=== PATIENT | male | born 1960 | race Caucasian/White ===

== ENCOUNTER → 2020-05-25 02:47 | Outpatient (CLI) | payer BC, SELFPAY ==
[2020-05-25 19:42] LABS: SARS-CoV-2 RNA PCR Negative
== END ==
PROVIDERS: PCP Family Medicine; Visit Provider Internal Medicine Gastroenterology
DX: Z01.812 Encounter for preprocedural laboratory examination (principal); Z20.822 Contact with and (suspected) exposure to COVID-19
CPT/HCPCS: C9803; U0003; U0005

== ENCOUNTER 2020-05-29 01:06 | Day surgery (SDC) | payer BC, SELFPAY ==
[2020-05-22 09:36] VITALS: BMI 27.0
--- NOTE | 2020-05-28 15:20 | WPDANESEPPF ---
Anes - Initial Pre Proc Eval Procedure: Operation Date: 05/29/20 08:00 Proposed Procedures p Esophagogastroduodenoscopy - Twin Valenzuela MD Date/Time: 05/28/20 15:20 Surgeon: Twin Valenzuela MD Pre Op Diagnosis: abd pain, GERD Patient Data Age: 59 Gender: M Height: 1.8 m Weight: 88 kg Allergies Allergy/AdvReac Type Severity Reaction Status Date / Time meperidine Allergy Unknown Unknown Verified 05/22/20 09:32 mold Allergy Unknown Unknown Verified 05/22/20 09:32 pollen extracts Allergy Unknown Unknown Verified 05/22/20 09:32 potassium chloride Allergy Unknown Unknown Verified 05/22/20 09:32 Home Medications Medication Instructions Recorded Confirmed Type valsartan 160 mg tablet 160 mg PO DAILY #90 tablet 06/09/19 05/22/20 Rx vilazodone 40 mg tablet 40 mg PO DAILY #90 tablet 10/16/19 05/22/20 Rx montelukast 10 mg tablet 10 mg PO DAILY #90 tablet 02/05/20 05/22/20 Rx alprazolam 0.5 mg tablet 0.5 mg PO DAILY #90 tablet 02/09/20 05/22/20 Rx azelastine 137 mcg (0.1 %) nasal 1 spray NASAL Q12H #30 ml 03/04/20 05/22/20 Rx spray aerosol cholecalciferol (vitamin D3) 250 250 mcg PO DAILY 03/08/20 05/22/20 History mcg (10,000 unit) capsule bupropion HCl 300 mg 24 hr tablet, 300 mg PO QAM #90 tablet 03/11/20 05/22/20 Rx extended release fexofenadine [Herminia] 60 mg PO Q12H 05/22/20 05/22/20 History PMFSH Past Medical History Medical History (Updated 05/28/20 @ 15:38 by Baljeet Mendoza MD) Anxiety Depression GERD (gastroesophageal reflux disease) Hypertension Surgical History Surgical History History of appendectomy History of thoracic surgery Family History Family History Father Hypertension Mother Hypertension Other Family history of malignant neoplasm of urinary bladder Social History Social History Smoking packs per day: 1 Smoking cigarettes per day: 20.0 Years smoked: 16 Smoking pack-years: 16.00 Smoking status: Former smoker Tobacco type: cigarettes Alcohol intake: current Drinks per week: 2 Substance use type: does not use 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 Questions were solicited and answers provided to the satisfaction of the patient/family/POA.
[2020-05-29 06:32] VITALS: BP 141/91; PULSE 71; RESP 18; TEMP 36.2; O2SAT 98; BMI 27.4
[2020-05-29] MEDS: LACTATED RINGERS 1,000 ML 150 ML IV CONT (06:48)
--- NOTE | 2020-05-29 06:50 | WPDANESEPPF ---
Anes - Initial Pre Proc Eval Procedure: Operation Date: 05/29/20 08:00 Proposed Procedures p Esophagogastroduodenoscopy - Twin Valenzuela MD Date/Time: 05/29/20 06:50 Surgeon: Twin Valenzuela MD Pre Op Diagnosis: abd pain, GERD Patient Data Age: 59 Gender: M Height: 5 ft 11 in Weight: 89.4 kg Last Vital Signs Temp 36.2 C L 05/29/20 06:32 Pulse 71 05/29/20 06:32 Resp 18 05/29/20 06:32 BP 141/91 H 05/29/20 06:32 Pulse Ox 98 05/29/20 06:32 Allergies Allergy/AdvReac Type Severity Reaction Status Date / Time meperidine Allergy Unknown Unknown Verified 05/29/20 06:30 mold Allergy Unknown Unknown Verified 05/29/20 06:30 pollen extracts Allergy Unknown Unknown Verified 05/29/20 06:30 potassium chloride Allergy Unknown Unknown Verified 05/29/20 06:30 Home Medications Medication Instructions Recorded Confirmed Type valsartan 160 mg tablet 160 mg PO DAILY #90 tablet 06/09/19 05/22/20 Rx vilazodone 40 mg tablet 40 mg PO DAILY #90 tablet 10/16/19 05/22/20 Rx montelukast 10 mg tablet 10 mg PO DAILY #90 tablet 02/05/20 05/22/20 Rx alprazolam 0.5 mg tablet 0.5 mg PO DAILY #90 tablet 02/09/20 05/22/20 Rx azelastine 137 mcg (0.1 %) nasal 1 spray NASAL Q12H #30 ml 03/04/20 05/22/20 Rx spray aerosol cholecalciferol (vitamin D3) 250 250 mcg PO DAILY 03/08/20 05/22/20 History mcg (10,000 unit) capsule bupropion HCl 300 mg 24 hr tablet, 300 mg PO QAM #90 tablet 03/11/20 05/22/20 Rx extended release fexofenadine [Herminia] 60 mg PO Q12H 05/22/20 05/22/20 History Patient hx anesthesia problems: none Family hx anesthesia problems: none PMFSH Past Medical History Medical History Anxiety Depression GERD (gastroesophageal reflux disease) Hypertension Surgical History Surgical History History of appendectomy History of thoracic surgery Family History Family History Father Hypertension Mother Hypertension Other Family history of malignant neoplasm of urinary bladder Social History Social History Smoking packs per day: 1 Smoking cigarettes per day: 20.0 Years smoked: 16 Smoking pack-years: 16.00 Smoking status: Former smoker Tobacco type: cigarettes Alcohol intake: current Drinks per week: 2 Substance use type: does not use Living arrangements: with family 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 Questions were solicited and answers provided to the satisfaction of the patient/family/POA.
[2020-05-29 08:12] VITALS: BP 113/71; PULSE 68; RESP 23; O2SAT 94
[2020-05-29 08:22] VITALS: BP 120/80; PULSE 61; RESP 13; O2SAT 96
[2020-05-29 08:32] VITALS: BP 123/87; PULSE 62; RESP 16; O2SAT 96
--- NOTE | 2020-06-03 12:58 | PM.HPGS ---
History of Present Illness History of Present Illness Consent: Risks, benefits, and alternatives have been discussed and questions answered. Patient agrees to proceed with procedure. Chief complaint: abd pain, GERD Narrative: Doug Bauer is a 59 year old male with dysphagia for solid food Review of Systems Review of Systems: All systems reviewed & are unremarkable except as noted in HPI and below PMFSH Past Medical History Medical History Anxiety Depression GERD (gastroesophageal reflux disease) Hypertension Surgical History Surgical History History of appendectomy History of thoracic surgery Family History Family History Father Hypertension Mother Hypertension Other Family history of malignant neoplasm of urinary bladder Social History Social History Smoking packs per day: 1 Smoking cigarettes per day: 20.0 Years smoked: 16 Smoking pack-years: 16.00 Smoking status: Former smoker Tobacco type: cigarettes Alcohol intake: current Drinks per week: 2 Substance use type: does not use Living arrangements: with family 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 Spiritual care concerns: No Meds Home Medications and Allergies Home Medications Medication Instructions Recorded Confirmed Type vilazodone 40 mg tablet 40 mg PO DAILY #90 tablet 10/16/19 05/22/20 Rx montelukast 10 mg tablet 10 mg PO DAILY #90 tablet 02/05/20 05/22/20 Rx alprazolam 0.5 mg tablet 0.5 mg PO DAILY #90 tablet 02/09/20 05/22/20 Rx azelastine 137 mcg (0.1 %) nasal 1 spray NASAL Q12H #30 ml 03/04/20 05/22/20 Rx spray aerosol cholecalciferol (vitamin D3) 250 250 mcg PO DAILY 03/08/20 05/22/20 History mcg (10,000 unit) capsule bupropion HCl 300 mg 24 hr tablet, 300 mg PO QAM #90 tablet 03/11/20 05/22/20 Rx extended release fexofenadine 60 mg PO Q12H 05/22/20 05/22/20 History valsartan 160 mg tablet See Rx Instructions .ROUTE 05/30/20 Rx .COMPLEX #90 tablet Allergies Allergy/AdvReac Type Severity Reaction Status Date / Time meperidine Allergy Unknown Unknown Verified 05/29/20 06:30 mold Allergy Unknown Unknown Verified 05/29/20 06:30 pollen extracts Allergy Unknown Unknown Verified 05/29/20 06:30 potassium chloride Allergy Unknown Unknown Verified 05/29/20 06:30 Exam Const: General: alert Orientation/consciousness: patient oriented x3 Resp: Auscultation: clear to auscultation bilaterally Cardio: Rhythm: regular rhythm GI: GI Palp: Yes Soft to palpation and No Tenderness to palpation present (GI) Neuro: General: patient oriented x3 Assessment and Plan Assessment and plan (1) Dysphagia: Code(s): R13.10 - Dysphagia, unspecified Status: Acute Assessment and Plan: EGD with possible biopsy or dilatation or cautery.
== END 2020-05-29 08:42 | disposition home or self-care (01) ==
PROVIDERS: PCP Family Medicine; Visit Provider Internal Medicine Gastroenterology
PROC: 0DJ08ZZ Inspection of Upper Intestinal Tract, Via Natural or Artificial Opening Endoscopic (ICD-10-PCS; CPT 43235; principal; 2020-05-29 08:00)
DX: K22.2 Esophageal obstruction (principal); K21.9 Gastro-esophageal reflux disease without esophagitis; I10 Essential (primary) hypertension; F41.8 Other specified anxiety disorders; Z87.891 Personal history of nicotine dependence
CPT/HCPCS: 43249; 43239; 87081; 88305; C1726; J2704; J7120

== ENCOUNTER 2024-06-23 14:28 | Outpatient (CLI) | payer BC, SELFPAY ==
--- NOTE | ~2024-06-23 | MR_ITS ---
EXAMINATION: MR cervical spine wo con DATE: 06/23/2024 15:09 INDICATION: Cervical radiculopathy. TECHNIQUE: Magnetic resonance imaging (MRI) of the cervical spine was performed without intravenous c ontrast. COMPARISON: None FINDINGS: There is 4 degrees dextrocurvature of cervical spine. There is mild kyphosis of cervical sp ine. Vertebral body heights are normal. There is mildly decreased disc height at C4-C5 and moderately decreased disc height at C5-C6 and C6-C7. The spinal cord signal intensity is normal. The following disc levels are specifically discussed: C2-C3: The disc does not extend beyond the endplate margin. There is mild right uncovertebral joint o steoarthritis. There is severe bilateral facet joint osteoarthritis. There is mild bilateral neural f oraminal stenosis. There is no central canal stenosis. C3-C4: There is a central protrusion. There is mild bilateral uncovertebral joint osteoarthritis. The re is severe bilateral facet joint osteoarthritis. There is mild bilateral neural foraminal stenosis. There is mild central canal stenosis. C4-C5: The disc is bulging. There is moderate bilateral uncovertebral joint osteoarthritis. There is severe bilateral facet joint osteoarthritis. There is mild bilateral neural foraminal stenosis. There is mild central canal stenosis. C5-C6: The disc is bulging. There is severe bilateral uncovertebral joint osteoarthritis. There is se ravindra bilateral facet joint osteoarthritis. There is moderate right and mild left neural foraminal mirta nosis. There is mild central canal stenosis. C6-C7: The disc is bulging with superimposed central extrusion. There is severe bilateral uncovertebr al joint osteoarthritis. There is mild bilateral facet joint osteoarthritis. There is mild bilateral neural foraminal stenosis. There is mild central canal stenosis. C7-T1: There is a central protrusion. There is no uncovertebral joint osteoarthritis. There is severe bilateral facet joint osteoarthritis. There is mild bilateral neural foraminal stenosis. There is no central canal stenosis. IMPRESSION: 1. Moderate cervical spondylosis. Reviewed, dictated and finalized at location A.
--- OUTSIDE RECORDS SUMMARY | 2024-06-23 14:32 | XMS_ITS ---
Author Organization [facility] Address [facility] [address] [facility] [address] [place] [address] Care Team Providers Care Emergency Response Technician Name Role Phone FestusKhadra capps DO Primary Care Provider Unavailab Hafsa Martini Unavailable [phone] REASON FOR VISIT Prescription Refill Social History Sex Assigned At : Social History Observation Description Sex Assigned At Male Encounters Encounter Location Date Provider Diagnosis [place] [id number] [facility] [address] [facility] [address] [place] [address] 04/17/2024 Hafsa Marti Plan Of Treatment Next Appt Details Provider Name:Hafsa Mrati , 2024 01:30:00 PM, [address], [facility] [address], [place], [address], Progress Notes * Doug BAUER PDOB: [birth year] (63 yo M)Acc No.[id number]:04/17/2024 Patient: Doug CHEN :1960 A ge:63 Y S ex:Male Phone: [facility] [place], [address] * true * Date: Generated for Printi ng/Faxing/eTransmitting on: 0 06/23/2024 02:32 PM CDT
--- OUTSIDE RECORDS SUMMARY | 2024-06-23 14:32 | XMS_ITS ---
Author Organization [facility] Address [facility] [facility] [address] [facility] [address] [place] [address] Care Team Providers Care Clam Treader Name Role Phone FestusKhadra capps DO Primary Care Provider Unavailab Hafsa Martini Unavailable [phone] REASON FOR VISIT Burproprion Social History Sex Assigned At : Social History Observation Description Sex Assigned At Male Encounters Encounter Location Date Provider Diagnosis [place] [id number] [facility] [address] [facility] [address] [place] [address] 04/17/2024 Hafsa Marti Plan Of Treatment Next Appt Details Provider Name:Hafsa Marti , 2024 01:30:00 PM, [address], [facility] [address], [place], [address], Progress Notes * Doug BAUER PDOB: [birth year] (63 yo M)Acc No.[id number]:04/17/2024 Patient: Doug CHEN :1960 A ge:63 Y S ex:Male Phone: Address[facility] [place], [address] * true * Date: Generated for Printi ng/Faxing/eTransmitting on: 0 06/23/2024 02:32 PM CDT
--- OUTSIDE RECORDS SUMMARY | 2024-06-23 14:32 | XMS_ITS | Patient Health Record ---
Author Organization [facility] [employer] Address [address] [place] [address] Care Team Providers Care Candy Vendor Name Role Phone Khadra Owen DO Primary Care Provider UnavailHafsa Esquivel Unavailable [phone] Allergies No Known Allergies Results Component Value Reference Range Notes UDT Reviewed date:03/28/2024 02:19:58 PM Interpretation: Performing Lab: Notes/Report: THC NEG 0 - 50 ng/ml Cocaine NEG 0 - 300 ng/ml Amphetamine NEG 0 - 1000 ng/ml Buprenorphine (BUP) NEG 0 - 10 ng/ml Secobarbital (Bar) NEG 0 - 300 ng/ml Oxazepam (BZO) POS 0 - 300 ng/ml 7-ydolrraooz-4,3-casjissl-6,3-diphenylpyrrolidine (SPIKE P) NEG 0 - 300 ng/ml Methamphetamine (MET) NEG 0 - 1000 ng/ml Methylenedioxymethamphetamine (MDMA) NEG 0 - 500 ng/ml Morphine (MOP 300/[id number]) NEG 0 - 300 ng/ml Methadone (MTD) NEG 0 - 300 ng/ml Phencyclidine (PCP) NEG 0 - 25 ng/ml Nortriptyline (TCA) NEG 0 - 1000 ng/ml Oxycodone NEG 0 - 300 ng/ml x NEG 0 - 300 ng/ml Reason For Referral No Information Medications Medication SIG (Take, Route, Frequency, Duration) Notes Start Date End Date Status busPIRone HCl 5 MG 1 tablet Orally Twice a day for 90 days Active Xanax 0.5 MG 1 tablet Orally Twice a day Active Montelukast Sodium 10 MG 1 tablet Orally Once a day Active Trintellix 10 MG 1 tablet Orally Once a day for 90 days Active Tylenol PM Extra Strength 500-25 MG 1 tablet at bedtime as needed Orally Once a day needed for sleep Active Trintellix 10 MG 1 tablet Orally Once a day for 30 days 04/12/2024 Active Omeprazole 20 MG 1 capsule 1/2 to 1 hour before morning meal Orally Once a day Active Valsartan 160 MG 1 tablet Orally Once a day Active buPROPion HCl ER (XL) 150 MG 1 tablet in the morning Orally Once a day for 90 days stop 300 mg dose patient is on 150 mg daily Active Dextromethorphan-buP ROPion ER 45-105 MG 1 tablet in the morning Orally twice a day for 30 days d/c Wellbutrin 06/16/2024 Active Social History Tobacco Use: Social History Observation Description Date Details (start date - stop date) Unknown Sex Assigned At : Social History Observation Description Sex Assigned At Male Sexual History Question Answer Notes Had sex in the past 12 months (vaginal, oral, or anal)? Yes with Men only Tobacco Control (Standard) Question Answer Notes Tobacco use: Uses tobacco in other forms AUDIT-C (Standard) Question Answer Notes Did you have a drink contain ing alcohol in the past year? Yes How often did you have a dri nk containing alcohol in the past year? Monthly or less (1 point) Problems Problem Type SNOMED Code ICD Code Onset Dates Problem Status W/U Status Risk Notes Problem 3837107 Primary insomnia (F51.01) Active confirmed Problem Depression Screening (902295614) Encounter for screening for depression (Z13.31) Active confirmed Problem 55652083 Primary hypertension (I10) Active confirmed Problem [id number] CASTILLO (generalized anxiety disorder) (F41.1) Active confirmed Problem [id number] MDD (major depressive disorder), recurrent episode, moderate (F33.1) Active confirmed Vital Signs Heart Rate 76 /min 04/14/2024 Respiratory Rate 16 /min 06/16/2024 Blood pressure diastolic 102 mm Hg 04/14/2024 Weight-kg 89.81 kg 04/14/2024 Blood pressure systolic 169 mm Hg 04/14/2024 Weight 198 lbs 04/14/2024 Encounters Encounter Location Date Provider Diagnosis [facility] [employer] [facility] [address] [address] 03/28/2024 Hafsa Marti MDD (major depressiv e disorder), recurrent episode, moderate F33.1 ; CASTILLO (generalized anxiety disorder) F41.1 ; Primary insomnia F51.01 and Primary hypertension I10 [place] [address] [address] [facility] [address] [address] 04/14/2024 Hafsa Thery MDD (major depressiv e disorder), recurrent episode, moderate F33.1 ; CASTILLO (generalized anxiety disorder) F41.1 ; Primary insomnia F51.01 and Primary hypertension I10 [address] [address] 06/16/2024 Hafsa Thery MDD (major depressiv e disorder), recurrent episode, moderate F33.1 ; CASTILLO (generalized anxiety disorder) F41.1 ; Primary insomnia F51.01 ; Primary hypertension I10 and Encounter for screening for depression Z13.[address] [address] 04/10/2024 Hafsa Thery MDD (major depressiv e disorder), recurrent episode, moderate F33.[address] [address] 04/12/2024 Hafsa Thery MDD (major depressiv e disorder), recurrent episode, moderate F33.[address] [address] 04/17/2024 Hafsa Thery [place] [address] [facility] [address] [address] 04/17/2024 Hafsa Thery Assessments Encounter Date Diagnosis (ICD Code) Assessment Notes Treatment Notes Treatment Clinical Notes Section Notes 04/10/2024 MDD (major depressive disorder), recurrent episode, moderate (ICD-10 - F33.1) Electronic Prior Authorization was requested for Trintellix 10 MG Tablet. Provider can order medication once approval received. 04/12/2024 MDD (major depressive disorder), recurrent episode, moderate (ICD-10 - F33.1) Electronic Prior Authorization was requested for Trintellix 10 MG Tablet. Provider can order medication once approval received. 03/28/2024 CASTILLO (generalized anxiety disorder) (ICD-10 - F41.1) Learning About Generalized Anxiety Disorder material was published, Generalized Anxiety Disorder: Care Instructions material was published, Learning About Anxiety Disorders material was published, Learning About Transcranial Magnetic Stimulation (TMS) material was published presently taking Xanax 0.5 mg twice a day, Lexapro 10 mg daily, Wellbutrin XL 300 mg daily in am 1. Depression Stopped Lexapro 10 mg dose discuss and eduation on medication options add Trintellix 5 mg daily for 1 week then increase to 10 mg daily - samples given and co-pay card decrease Wellbutrin XL 150 MG DAILY in am refer to therapy 2. Anxiety Xanax 0.5 mg twice a day- PCP filled discuss and eduation on medication options Add Buspar 5 mg twice a day - anxiety and depression 3. Insomnia sleep hygiene http_s://www.beto .org/About-Mental -Illness/Mental-H ealth-Conditions http_s://psychcen [employer].com/depressi on/the-cognitive- jnxfyaoi-jk-bjwyi ssion#treatments http__s://www.[facility].nih.gov/health/ topics/mental-hea lth-medications http__s://www.nam i.org/About-Menta l-Illness/Treatme nts/Mental-Health -Medications educated on all medications, benefits, side effects and risk, and educated on depression, anxiety, and ADHD, mood d/o and educated on compliance of medications, metabolic and movement d/o education appointment's, continue therapy discussion with patient about course of treatment and patient instructions. education on serotonin syndrome Discussed and educated pt regarding benzodiazepines are generally not intended for prolonged use and that use can cause tolerance, dependence, depression, and associated memory issues including dementias (this list is not exhaustive). Benzodiazepine use is generally not recommended concurrently with pain medications and/or other controlled substances educated on all medications, benefits, side effects and risk, and educated on depression, anxiety, and ADHD, mood d/o and educated on compliance of medications, metabolic and movement d/o education appointment is, continue therapy discussion with patient about course of treatment and patient instructions. education on serotonin syndrome SSRI/SNRI side effects discussed including but not limited to, gastric upset, nausea, vomiting, diarrhea and/or constipation, weight changes, sexual side effects including loss of libido, increased suicidal thoughts/behavior s in children and young adults, and serotonin syndrome. Medication Management and Follow-Up - Plan: - Schedule follow-up appointments every 1-3 months to monitor the patient's response to the medication regimen. - Reinforce the importance of avoiding recreational drug use due to potential neurotoxicity and interactions with prescribed medications. 03/28/2024 MDD (major depressive disorder), recurrent episode, moderate (ICD-10 - F33.1) Electronic Prior Authorization was requested for Trintellix 10 MG Tablet. Provider can order medication once approval received., Preventing Depression From Coming Back: Care Instructions material was published, Learning About Depression material was published, Learning About Depression Screening material was published, Seasonal Affective Disorder: Care Instructions material was published, Depression Treatment: Care Instructions material was published presently taking Xanax 0.5 mg twice a day, Lexapro 10 mg daily, Wellbutrin XL 300 mg daily in am 1. Depression Stopped Lexapro 10 mg dose discuss and eduation on medication options add Trintellix 5 mg daily for 1 week then increase to 10 mg daily - samples given and co-pay card decrease Wellbutrin XL 150 MG DAILY in am refer to therapy 2. Anxiety Xanax 0.5 mg twice a day- PCP filled discuss and eduation on medication options Add Buspar 5 mg twice a day - anxiety and depression 3. Insomnia sleep hygiene http_s://www.beto .org/About-Mental -Illness/Mental-H ealth-Conditions http_s://psychcen [employer].com/depressi on/the-cognitive- qzxmmwzx-zk-nsysu ssion#treatments http__s://www.nim h.nih.gov/health/ topics/mental-hea lth-medications http__s://www.nam i.org/About-Menta l-Illness/Treatme nts/Mental-Health -Medications educated on all medications, benefits, side effects and risk, and educated on depression, anxiety, and ADHD, mood d/o and educated on compliance of medications, metabolic and movement d/o education appointment's, continue therapy discussion with patient about course of treatment and patient instructions. education on serotonin syndrome Discussed and educated pt regarding benzodiazepines are generally not intended for prolonged use and that use can cause tolerance, dependence, depression, and associated memory issues including dementias (this list is not exhaustive). Benzodiazepine use is generally not recommended concurrently with pain medications and/or other controlled substances educated on all medications, benefits, side effects and risk, and educated on depression, anxiety, and ADHD, mood d/o and educated on compliance of medications, metabolic and movement d/o education appointment is, continue therapy discussion with patient about course of treatment and patient instructions. education on serotonin syndrome SSRI/SNRI side effects discussed including but not limited to, gastric upset, nausea, vomiting, diarrhea and/or constipation, weight changes, sexual side effects including loss of libido, increased suicidal thoughts/behavior s in children and young adults, and serotonin syndrome. Medication Management and Follow-Up - Plan: - Schedule follow-up appointments every 1-3 months to monitor the patient's response to the medication regimen. - Reinforce the importance of avoiding recreational drug use due to potential neurotoxicity and interactions with prescribed medications. 04/14/2024 MDD (major depressive disorder), recurrent episode, moderate (ICD-10 - F33.1) Electronic Prior Authorization was requested for Trintellix 10 MG Tablet. Provider can order medication once approval received., Preventing Depression From Coming Back: Care Instructions material was published, Learning About Depression material was published, Learning About Depression Screening material was published, Seasonal Affective Disorder: Care Instructions material was published, Depression Treatment: Care Instructions material was published 1. Depression discuss and eduation on medication options Trintellix 10 mg daily - samples given and co-pay card- [place] Approved 04/22 Wellbutrin XL 150 MG DAILY in am ([facility] at [facility] [facility] [facility] pateint) refer to therapy 2. Anxiety Xanax 0.5 mg twice a day- PCP filled discuss and eduation on medication options Buspar 5 mg twice a day - anxiety and depression 3. Insomnia improved sleep hygiene 4. htn educated on healthy b/p 120/80 monitor b/p at home refer to PCP, Urgent care/ER heart healthy diet and excise limit salt intake limit soda intake and caffiene increase water excise continue will see PCP on B/P rx http_s://www.beto .org/About-Mental -Illness/Mental-H ealth-Conditions http_s://psychcen tral.com/depressi on/the-cognitive- ztbkmbhi-hk-eahdi ssion#treatments http__s://www.nim h.nih.gov/health/ topics/mental-hea lth-medications http__s://www.nam i.org/About-Menta l-Illness/Treatme nts/Mental-Health -Medications educated on all medications, benefits, side effects and risk, and educated on depression, anxiety, and ADHD, mood d/o and educated on compliance of medications, metabolic and movement d/o education appointment's, continue therapy discussion with patient about course of treatment and patient instructions. education on serotonin syndrome Discussed and educated pt regarding benzodiazepines are generally not intended for prolonged use and that use can cause tolerance, dependence, depression, and associated memory issues including dementias (this list is not exhaustive). Benzodiazepine use is generally not recommended concurrently with pain medications and/or other controlled substances educated on all medications, benefits, side effects and risk, and educated on depression, anxiety, and ADHD, mood d/o and educated on compliance of medications, metabolic and movement d/o education appointment is, continue therapy discussion with patient about course of treatment and patient instructions. education on serotonin syndrome SSRI/SNRI side effects discussed including but not limited to, gastric upset, nausea, vomiting, diarrhea and/or constipation, weight changes, sexual side effects including loss of libido, increased suicidal thoughts/behavior s in children and young adults, and serotonin syndrome. Medication Management and Follow-Up - Plan: - Schedule follow-up appointments every 1-3 months to monitor the patient's response to the medication regimen. - Reinforce the importance of avoiding recreational drug use due to potential neurotoxicity and interactions with prescribed medications. 06/16/2024 MDD (major depressive disorder), recurrent episode, moderate (ICD-10 - F33.1) Electronic Prior Authorization was requested for Trintellix 10 MG Tablet. Provider can order medication once approval received., Preventing Depression From Coming Back: Care Instructions material was published, Learning About Depression material was published, Learning About Depression Screening material was published, Seasonal Affective Disorder: Care Instructions material was published, Depression Treatment: Care Instructions material was published 1. Depression discuss and eduation on medication options Trintellix 10 mg daily - samples given and co-pay card- [place] Approved 04/22 Stop Wellbutrin XL 150 MG DAILY in am Add AUVELITY 45/105 mg- 1 tab daily for 3 days then increase 1 tab twice a day - samples and co-pay given sent to pharmacy educated on all rx refer to therapy 2. Anxiety Xanax 0.5 mg twice a day- PCP filled discuss and eduation on medication options Buspar 5 mg twice a day - anxiety and depression 3. Insomnia stable sleep hygiene 4. htn educated on healthy b/p 120/80 monitor b/p at home refer to PCP, Urgent care/ER heart healthy diet and excise limit salt intake limit soda intake and caffiene increase water excise continue will see PCP on B/P rx http_s://www.beto .org/About-Mental -Illness/Mental-H ealth-Conditions http_s://psychcen tral.com/depressi on/the-cognitive- shnzceeb-ur-pigry ssion#treatments http__s://www.nim .nih.gov/health/ topics/mental-hea lth-medications http__s://www.nam i.org/About-Menta l-Illness/Treatme nts/Mental-Health -Medications educated on all medications, benefits, side effects and risk, and educated on depression, anxiety, and ADHD, mood d/o and educated on compliance of medications, metabolic and movement d/o education appointment's, continue therapy discussion with patient about course of treatment and patient instructions. education on serotonin syndrome Discussed and educated pt regarding benzodiazepines are generally not intended for prolonged use and that use can cause tolerance, dependence, depression, and associated memory issues including dementias (this list is not exhaustive). Benzodiazepine use is generally not recommended concurrently with pain medications and/or other controlled substances educated on all medications, benefits, side effects and risk, and educated on depression, anxiety, and ADHD, mood d/o and educated on compliance of medications, metabolic and movement d/o education appointment is, continue therapy discussion with patient about course of treatment and patient instructions. education on serotonin syndrome SSRI/SNRI side effects discussed including but not limited to, gastric upset, nausea, vomiting, diarrhea and/or constipation, weight changes, sexual side effects including loss of libido, increased suicidal thoughts/behavior s in children and young adults, and serotonin syndrome. Medication Management and Follow-Up - Plan: - Schedule follow-up appointments every 1-3 months to monitor the patient's response to the medication regimen. - Reinforce the importance of avoiding recreational drug use due to potential neurotoxicity and interactions with prescribed medications. 06/16/2024 CASTILLO (generalized anxiety disorder) (ICD-10 - F41.1) Learning About Generalized Anxiety Disorder material was published, Generalized Anxiety Disorder: Care Instructions material was published, Learning About Anxiety Disorders material was published, Learning About Transcranial Magnetic Stimulation (TMS) material was published 1. Depression discuss and eduation on medication options Trintellix 10 mg daily - samples given and co-pay card- [place] Approved 04/22 Stop Wellbutrin XL 150 MG DAILY in am Add AUVELITY 45/105 mg- 1 tab daily for 3 days then increase 1 tab twice a day - samples and co-pay given sent to pharmacy educated on all rx refer to therapy 2. Anxiety Xanax 0.5 mg twice a day- PCP filled discuss and eduation on medication options Buspar 5 mg twice a day - anxiety and depression 3. Insomnia stable sleep hygiene 4. htn educated on healthy b/p 120/80 monitor b/p at home refer to PCP, Urgent care/ER heart healthy diet and excise limit salt intake limit soda intake and caffiene increase water excise continue will see PCP on B/P rx http_s://www.beto .org/About-Mental -Illness/Mental-H ealth-Conditions http_s://psychcen [employer]lAOBiome/depressi on/the-cognitive- mjghunen-kn-ztete ssion#treatments http__s://www.nim h.nih.gov/health/ topics/mental-hea lth-medications http__s://www.nam i.org/About-Menta l-Illness/Treatme nts/Mental-Health -Medications educated on all medications, benefits, side effects and risk, and educated on depression, anxiety, and ADHD, mood d/o and educated on compliance of medications, metabolic and movement d/o education appointment's, continue therapy discussion with patient about course of treatment and patient instructions. education on serotonin syndrome Discussed and educated pt regarding benzodiazepines are generally not intended for prolonged use and that use can cause tolerance, dependence, depression, and associated memory issues including dementias (this list is not exhaustive). Benzodiazepine use is generally not recommended concurrently with pain medications and/or other controlled substances educated on all medications, benefits, side effects and risk, and educated on depression, anxiety, and ADHD, mood d/o and educated on compliance of medications, metabolic and movement d/o education appointment is, continue therapy discussion with patient about course of treatment and patient instructions. education on serotonin syndrome SSRI/SNRI side effects discussed including but not limited to, gastric upset, nausea, vomiting, diarrhea and/or constipation, weight changes, sexual side effects including loss of libido, increased suicidal thoughts/behavior s in children and young adults, and serotonin syndrome. Medication Management and Follow-Up - Plan: - Schedule follow-up appointments every 1-3 months to monitor the patient's response to the medication regimen. - Reinforce the importance of avoiding recreational drug use due to potential neurotoxicity and interactions with prescribed medications. 04/14/2024 CASTILLO (generalized anxiety disorder) (ICD-10 - F41.1) Learning About Generalized Anxiety Disorder material was published, Generalized Anxiety Disorder: Care Instructions material was published, Learning About Anxiety Disorders material was published, Learning About Transcranial Magnetic Stimulation (TMS) material was published 1. Depression discuss and eduation on medication options Trintellix 10 mg daily - samples given and co-pay card- [place] Approved 04/22 Wellbutrin XL 150 MG DAILY in am ([facility] at [employer] [facility] [facility] pateint) refer to therapy 2. Anxiety Xanax 0.5 mg twice a day- PCP filled discuss and eduation on medication options Buspar 5 mg twice a day - anxiety and depression 3. Insomnia improved sleep hygiene 4. htn educated on healthy b/p 120/80 monitor b/p at home refer to PCP, Urgent care/ER heart healthy diet and excise limit salt intake limit soda intake and caffiene increase water excise continue will see PCP on B/P rx http_s://www.beto .org/About-Mental -Illness/Mental-H ealth-Conditions http_s://psychcen tral.com/depressi on/the-cognitive- yglcbvkr-sr-dvbpq ssion#treatments http__s://www.nim h.nih.gov/health/ topics/mental-hea lth-medications http__s://www.nam i.org/About-Menta l-Illness/Treatme nts/Mental-Health -Medications educated on all medications, benefits, side effects and risk, and educated on depression, anxiety, and ADHD, mood d/o and educated on compliance of medications, metabolic and movement d/o education appointment's, continue therapy discussion with patient about course of treatment and patient instructions. education on serotonin syndrome Discussed and educated pt regarding benzodiazepines are generally not intended for prolonged use and that use can cause tolerance, dependence, depression, and associated memory issues including dementias (this list is not exhaustive). Benzodiazepine use is generally not recommended concurrently with pain medications and/or other controlled substances educated on all medications, benefits, side effects and risk, and educated on depression, anxiety, and ADHD, mood d/o and educated on compliance of medications, metabolic and movement d/o education appointment is, continue therapy discussion with patient about course of treatment and patient instructions. education on serotonin syndrome SSRI/SNRI side effects discussed including but not limited to, gastric upset, nausea, vomiting, diarrhea and/or constipation, weight changes, sexual side effects including loss of libido, increased suicidal thoughts/behavior s in children and young adults, and serotonin syndrome. Medication Management and Follow-Up - Plan: - Schedule follow-up appointments every 1-3 months to monitor the patient's response to the medication regimen. - Reinforce the importance of avoiding recreational drug use due to potential neurotoxicity and interactions with prescribed medications. 03/28/2024 Primary insomnia (ICD-10 - F51.01) Insomnia: Care Instructions material was published, Learning About Sleeping Well material was published presently taking Xanax 0.5 mg twice a day, Lexapro 10 mg daily, Wellbutrin XL 300 mg daily in am 1. Depression Stopped Lexapro 10 mg dose discuss and eduation on medication options add Trintellix 5 mg daily for 1 week then increase to 10 mg daily - samples given and co-pay card decrease Wellbutrin XL 150 MG DAILY in am refer to therapy 2. Anxiety Xanax 0.5 mg twice a day- PCP filled discuss and eduation on medication options Add Buspar 5 mg twice a day - anxiety and depression 3. Insomnia sleep hygiene http_s://www.beto .org/About-Mental -Illness/Mental-H ealth-Conditions http_s://psychcen tral.com/depressi on/the-cognitive- cukixskb-ls-zpyur ssion#treatments http__s://www.nim h.nih.gov/health/ topics/mental-hea lth-medications http__s://www.nam i.org/About-Menta l-Illness/Treatme nts/Mental-Health -Medications educated on all medications, benefits, side effects and risk, and educated on depression, anxiety, and ADHD, mood d/o and educated on compliance of medications, metabolic and movement d/o education appointment's, continue therapy discussion with patient about course of treatment and patient instructions. education on serotonin syndrome Discussed and educated pt regarding benzodiazepines are generally not intended for prolonged use and that use can cause tolerance, dependence, depression, and associated memory issues including dementias (this list is not exhaustive). Benzodiazepine use is generally not recommended concurrently with pain medications and/or other controlled substances educated on all medications, benefits, side effects and risk, and educated on depression, anxiety, and ADHD, mood d/o and educated on compliance of medications, metabolic and movement d/o education appointment is, continue therapy discussion with patient about course of treatment and patient instructions. education on serotonin syndrome SSRI/SNRI side effects discussed including but not limited to, gastric upset, nausea, vomiting, diarrhea and/or constipation, weight changes, sexual side effects including loss of libido, increased suicidal thoughts/behavior s in children and young adults, and serotonin syndrome. Medication Management and Follow-Up - Plan: - Schedule follow-up appointments every 1-3 months to monitor the patient's response to the medication regimen. - Reinforce the importance of avoiding recreational drug use due to potential neurotoxicity and interactions with prescribed medications. 03/28/2024 Primary hypertension (ICD-10 - I10) presently taking Xanax 0.5 mg twice a day, Lexapro 10 mg daily, Wellbutrin XL 300 mg daily in am 1. Depression Stopped Lexapro 10 mg dose discuss and eduation on medication options add Trintellix 5 mg daily for 1 week then increase to 10 mg daily - samples given and co-pay card decrease Wellbutrin XL 150 MG DAILY in am refer to therapy 2. Anxiety Xanax 0.5 mg twice a day- PCP filled discuss and eduation on medication options Add Buspar 5 mg twice a day - anxiety and depression 3. Insomnia sleep hygiene http_s://www.beto .org/About-Mental -Illness/Mental-H ealth-Conditions http_s://psychcen tral.com/depressi on/the-cognitive- hleiigxn-zx-tudii ssion#treatments http__s://www.[facility].nih.gov/health/ topics/mental-hea lth-medications http__s://www.nam i.org/About-Menta l-Illness/Treatme nts/Mental-Health -Medications educated on all medications, benefits, side effects and risk, and educated on depression, anxiety, and ADHD, mood d/o and educated on compliance of medications, metabolic and movement d/o education appointment's, continue therapy discussion with patient about course of treatment and patient instructions. education on serotonin syndrome Discussed and educated pt regarding benzodiazepines are generally not intended for prolonged use and that use can cause tolerance, dependence, depression, and associated memory issues including dementias (this list is not exhaustive). Benzodiazepine use is generally not recommended concurrently with pain medications and/or other controlled substances educated on all medications, benefits, side effects and risk, and educated on depression, anxiety, and ADHD, mood d/o and educated on compliance of medications, metabolic and movement d/o education appointment is, continue therapy discussion with patient about course of treatment and patient instructions. education on serotonin syndrome SSRI/SNRI side effects discussed including but not limited to, gastric upset, nausea, vomiting, diarrhea and/or constipation, weight changes, sexual side effects including loss of libido, increased suicidal thoughts/behavior s in children and young adults, and serotonin syndrome. Medication Management and Follow-Up - Plan: - Schedule follow-up appointments every 1-3 months to monitor the patient's response to the medication regimen. - Reinforce the importance of avoiding recreational drug use due to potential neurotoxicity and interactions with prescribed medications. 04/14/2024 Primary insomnia (ICD-10 - F51.01) Insomnia: Care Instructions material was published, Learning About Sleeping Well material was published 1. Depression discuss and eduation on medication options Trintellix 10 mg daily - samples given and co-pay card- [place] Approved 04/22 Wellbutrin XL 150 MG DAILY in am ([facility] at [facility] [facility] [facility] pateint) refer to therapy 2. Anxiety Xanax 0.5 mg twice a day- PCP filled discuss and eduation on medication options Buspar 5 mg twice a day - anxiety and depression 3. Insomnia improved sleep hygiene 4. htn educated on healthy b/p 120/80 monitor b/p at home refer to PCP, Urgent care/ER heart healthy diet and excise limit salt intake limit soda intake and caffiene increase water excise continue will see PCP on B/P rx http_s://www.beto .org/About-Mental -Illness/Mental-H ealth-Conditions http_s://psychcen tral.com/depressi on/the-cognitive- aeqwarzs-om-gwekk ssion#treatments http__s://www.[facility].nih.gov/health/ topics/mental-hea lt-medications http__s://www.nam i.org/About-Menta l-Illness/Treatme nts/Mental-Health -Medications educated on all medications, benefits, side effects and risk, and educated on depression, anxiety, and ADHD, mood d/o and educated on compliance of medications, metabolic and movement d/o education appointment's, continue therapy discussion with patient about course of treatment and patient instructions. education on serotonin syndrome Discussed and educated pt regarding benzodiazepines are generally not intended for prolonged use and that use can cause tolerance, dependence, depression, and associated memory issues including dementias (this list is not exhaustive). Benzodiazepine use is generally not recommended concurrently with pain medications and/or other controlled substances educated on all medications, benefits, side effects and risk, and educated on depression, anxiety, and ADHD, mood d/o and educated on compliance of medications, metabolic and movement d/o education appointment is, continue therapy discussion with patient about course of treatment and patient instructions. education on serotonin syndrome SSRI/SNRI side effects discussed including but not limited to, gastric upset, nausea, vomiting, diarrhea and/or constipation, weight changes, sexual side effects including loss of libido, increased suicidal thoughts/behavior s in children and young adults, and serotonin syndrome. Medication Management and Follow-Up - Plan: - Schedule follow-up appointments every 1-3 months to monitor the patient's response to the medication regimen. - Reinforce the importance of avoiding recreational drug use due to potential neurotoxicity and interactions with prescribed medications. 06/16/2024 Primary insomnia (ICD-10 - F51.01) Insomnia: Care Instructions material was published, Learning About Sleeping Well material was published 1. Depression discuss and eduation on medication options Trintellix 10 mg daily - samples given and co-pay card- [place] Approved 04/22 Stop Wellbutrin XL 150 MG DAILY in am Add AUVELITY 45/105 mg- 1 tab daily for 3 days then increase 1 tab twice a day - samples and co-pay given sent to pharmacy educated on all rx refer to therapy 2. Anxiety Xanax 0.5 mg twice a day- PCP filled discuss and eduation on medication options Buspar 5 mg twice a day - anxiety and depression 3. Insomnia stable sleep hygiene 4. htn educated on healthy b/p 120/80 monitor b/p at home refer to PCP, Urgent care/ER heart healthy diet and excise limit salt intake limit soda intake and caffiene increase water excise continue will see PCP on B/P rx http_s://www.beto .org/About-Mental -Illness/Mental-H ealth-Conditions http_s://[employer] [place]/depressi on/the-cognitive- crlmuxoi-ih-olzyp ssion#treatments http__s://www.nim .nih.gov/health/ topics/mental-hea lth-medications http__s://www.nam i.org/About-Menta l-Illness/Treatme nts/Mental-Health -Medications educated on all medications, benefits, side effects and risk, and educated on depression, anxiety, and ADHD, mood d/o and educated on compliance of medications, metabolic and movement d/o education appointment's, continue therapy discussion with patient about course of treatment and patient instructions. education on serotonin syndrome Discussed and educated pt regarding benzodiazepines are generally not intended for prolonged use and that use can cause tolerance, dependence, depression, and associated memory issues including dementias (this list is not exhaustive). Benzodiazepine use is generally not recommended concurrently with pain medications and/or other controlled substances educated on all medications, benefits, side effects and risk, and educated on depression, anxiety, and ADHD, mood d/o and educated on compliance of medications, metabolic and movement d/o education appointment is, continue therapy discussion with patient about course of treatment and patient instructions. education on serotonin syndrome SSRI/SNRI side effects discussed including but not limited to, gastric upset, nausea, vomiting, diarrhea and/or constipation, weight changes, sexual side effects including loss of libido, increased suicidal thoughts/behavior s in children and young adults, and serotonin syndrome. Medication Management and Follow-Up - Plan: - Schedule follow-up appointments every 1-3 months to monitor the patient's response to the medication regimen. - Reinforce the importance of avoiding recreational drug use due to potential neurotoxicity and interactions with prescribed medications. 06/16/2024 Primary hypertension (ICD-10 - I10) 1. Depression discuss and eduation on medication options Trintellix 10 mg daily - samples given and co-pay card- [place] Approved 04/22 Stop Wellbutrin XL 150 MG DAILY in am Add AUVELITY 45/105 mg- 1 tab daily for 3 days then increase 1 tab twice a day - samples and co-pay given sent to pharmacy educated on all rx refer to therapy 2. Anxiety Xanax 0.5 mg twice a day- PCP filled discuss and eduation on medication options Buspar 5 mg twice a day - anxiety and depression 3. Insomnia stable sleep hygiene 4. htn educated on healthy b/p 120/80 monitor b/p at home refer to PCP, Urgent care/ER heart healthy diet and excise limit salt intake limit soda intake and caffiene increase water excise continue will see PCP on B/P rx http_s://www.beto .org/About-Mental -Illness/Mental-H ealth-Conditions http_s://psychcen [employer].com/depressi on/the-cognitive- obcdvuyl-sp-brtbx ssion#treatments http__s://www.nim h.nih.gov/health/ topics/mental-hea lth-medications http__s://www.nam i.org/About-Menta l-Illness/Treatme nts/Mental-Health -Medications educated on all medications, benefits, side effects and risk, and educated on depression, anxiety, and ADHD, mood d/o and educated on compliance of medications, metabolic and movement d/o education appointment's, continue therapy discussion with patient about course of treatment and patient instructions. education on serotonin syndrome Discussed and educated pt regarding benzodiazepines are generally not intended for prolonged use and that use can cause tolerance, dependence, depression, and associated memory issues including dementias (this list is not exhaustive). Benzodiazepine use is generally not recommended concurrently with pain medications and/or other controlled substances educated on all medications, benefits, side effects and risk, and educated on depression, anxiety, and ADHD, mood d/o and educated on compliance of medications, metabolic and movement d/o education appointment is, continue therapy discussion with patient about course of treatment and patient instructions. education on serotonin syndrome SSRI/SNRI side effects discussed including but not limited to, gastric upset, nausea, vomiting, diarrhea and/or constipation, weight changes, sexual side effects including loss of libido, increased suicidal thoughts/behavior s in children and young adults, and serotonin syndrome. Medication Management and Follow-Up - Plan: - Schedule follow-up appointments every 1-3 months to monitor the patient's response to the medication regimen. - Reinforce the importance of avoiding recreational drug use due to potential neurotoxicity and interactions with prescribed medications. 04/14/2024 Primary hypertension (ICD-10 - I10) 1. Depression discuss and eduation on medication options Trintellix 10 mg daily - samples given and co-pay card- [place] Approved 04/22 Wellbutrin XL 150 MG DAILY in am ([facility] at [employer] pateint) refer to therapy 2. Anxiety Xanax 0.5 mg twice a day- PCP filled discuss and eduation on medication options Buspar 5 mg twice a day - anxiety and depression 3. Insomnia improved sleep hygiene 4. htn educated on healthy b/p 120/80 monitor b/p at home refer to PCP, Urgent care/ER heart healthy diet and excise limit salt intake limit soda intake and caffiene increase water excise continue will see PCP on B/P rx http_s://www.beto .org/About-Mental -Illness/Mental-H ealth-Conditions http_s://psychcen [employer].com/depressi on/the-cognitive- kefhxfyy-qw-keajf ssion#treatments http__s://www.nim h.nih.gov/health/ topics/mental-hea lth-medications http__s://www.nam i.org/About-Menta l-Illness/Treatme nts/Mental-Health -Medications educated on all medications, benefits, side effects and risk, and educated on depression, anxiety, and ADHD, mood d/o and educated on compliance of medications, metabolic and movement d/o education appointment's, continue therapy discussion with patient about course of treatment and patient instructions. education on serotonin syndrome Discussed and educated pt regarding benzodiazepines are generally not intended for prolonged use and that use can cause tolerance, dependence, depression, and associated memory issues including dementias (this list is not exhaustive). Benzodiazepine use is generally not recommended concurrently with pain medications and/or other controlled substances educated on all medications, benefits, side effects and risk, and educated on depression, anxiety, and ADHD, mood d/o and educated on compliance of medications, metabolic and movement d/o education appointment is, continue therapy discussion with patient about course of treatment and patient instructions. education on serotonin syndrome SSRI/SNRI side effects discussed including but not limited to, gastric upset, nausea, vomiting, diarrhea and/or constipation, weight changes, sexual side effects including loss of libido, increased suicidal thoughts/behavior s in children and young adults, and serotonin syndrome. Medication Management and Follow-Up - Plan: - Schedule follow-up appointments every 1-3 months to monitor the patient's response to the medication regimen. - Reinforce the importance of avoiding recreational drug use due to potential neurotoxicity and interactions with prescribed medications. 06/16/2024 Encounter for screening for depression (ICD-10 - Z13.31) 1. Depression discuss and eduation on medication options Trintellix 10 mg daily - samples given and co-pay card- [place] Approved 04/22 Stop Wellbutrin XL 150 MG DAILY in am Add AUVELITY 45/105 mg- 1 tab daily for 3 days then increase 1 tab twice a day - samples and co-pay given sent to pharmacy educated on all rx refer to therapy 2. Anxiety Xanax 0.5 mg twice a day- PCP filled discuss and eduation on medication options Buspar 5 mg twice a day - anxiety and depression 3. Insomnia stable sleep hygiene 4. htn educated on healthy b/p 120/80 monitor b/p at home refer to PCP, Urgent care/ER heart healthy diet and excise limit salt intake limit soda intake and caffiene increase water excise continue will see PCP on B/P rx http_s://www.beto .org/About-Mental -Illness/Mental-H ealth-Conditions http_s://psychcen tral.com/depressi on/the-cognitive- ezavpelu-mx-vmlgu ssion#treatments http__s://www.nim h.nih.gov/health/ topics/mental-hea lth-medications http__s://www.nam i.org/About-Menta l-Illness/Treatme nts/Mental-Health -Medications educated on all medications, benefits, side effects and risk, and educated on depression, anxiety, and ADHD, mood d/o and educated on compliance of medications, metabolic and movement d/o education appointment's, continue therapy discussion with patient about course of treatment and patient instructions. education on serotonin syndrome Discussed and educated pt regarding benzodiazepines are generally not intended for prolonged use and that use can cause tolerance, dependence, depression, and associated memory issues including dementias (this list is not exhaustive). Benzodiazepine use is generally not recommended concurrently with pain medications and/or other controlled substances educated on all medications, benefits, side effects and risk, and educated on depression, anxiety, and ADHD, mood d/o and educated on compliance of medications, metabolic and movement d/o education appointment is, continue therapy discussion with patient about course of treatment and patient instructions. education on serotonin syndrome SSRI/SNRI side effects discussed including but not limited to, gastric upset, nausea, vomiting, diarrhea and/or constipation, weight changes, sexual side effects including loss of libido, increased suicidal thoughts/behavior s in children and young adults, and serotonin syndrome. Medication Management and Follow-Up - Plan: - Schedule follow-up appointments every 1-3 months to monitor the patient's response to the medication regimen. - Reinforce the importance of avoiding recreational drug use due to potential neurotoxicity and interactions with prescribed medications. 03/28/2024 Other Learning About Depression Screening material was printed, Bupropion Extended Release Oral Tablet (BUPROPION HCL EXTENDED-RELEASE (ANTIDEPRESSANT) - ORAL) material was published, Vortioxetine Oral Tablet (VORTIOXETINE - ORAL) material was published, Buspirone Oral Tablet (BUSPIRONE - ORAL) material was published presently taking Xanax 0.5 mg twice a day, Lexapro 10 mg daily, Wellbutrin XL 300 mg daily in am 1. Depression Stopped Lexapro 10 mg dose discuss and eduation on medication options add Trintellix 5 mg daily for 1 week then increase to 10 mg daily - samples given and co-pay card decrease Wellbutrin XL 150 MG DAILY in am refer to therapy 2. Anxiety Xanax 0.5 mg twice a day- PCP filled discuss and eduation on medication options Add Buspar 5 mg twice a day - anxiety and depression 3. Insomnia sleep hygiene http_s://www.beto .org/About-Mental -Illness/Mental-H ealth-Conditions http_s://psychcen tral.com/depressi on/the-cognitive- izpmjclo-kl-uhhua ssion#treatments http__s://www.[facility].nih.gov/health/ topics/[facility]ications http__s://www.nam i.org/About-Menta l-Illness/Treatme nts/Mental-Health -Medications educated on all medications, benefits, side effects and risk, and educated on depression, anxiety, and ADHD, mood d/o and educated on compliance of medications, metabolic and movement d/o education appointment's, continue therapy discussion with patient about course of treatment and patient instructions. education on serotonin syndrome Discussed and educated pt regarding benzodiazepines are generally not intended for prolonged use and that use can cause tolerance, dependence, depression, and associated memory issues including dementias (this list is not exhaustive). Benzodiazepine use is generally not recommended concurrently with pain medications and/or other controlled substances educated on all medications, benefits, side effects and risk, and educated on depression, anxiety, and ADHD, mood d/o and educated on compliance of medications, metabolic and movement d/o education appointment is, continue therapy discussion with patient about course of treatment and patient instructions. education on serotonin syndrome SSRI/SNRI side effects discussed including but not limited to, gastric upset, nausea, vomiting, diarrhea and/or constipation, weight changes, sexual side effects including loss of libido, increased suicidal thoughts/behavior s in children and young adults, and serotonin syndrome. Medication Management and Follow-Up - Plan: - Schedule follow-up appointments every 1-3 months to monitor the patient's response to the medication regimen. - Reinforce the importance of avoiding recreational drug use due to potential neurotoxicity and interactions with prescribed medications. Plan Of Treatment Next Appt Details Provider Name:Hafsa Marti , 2024 01:30:00 PM, [address], [address], [place], [address], Insurance Providers Payer Name Payer Address Payer Phone Subscriber Number Group Number Insured Name Patient Relationship to Insured Coverage Start Date Coverage End Date [facility] [address] [place] [phone] [id number] Doug Bauer Self - patient is the insured Medical (General) History Medical History History ICD Code Past Psychiatric History: An xiety Disorder,Panic Disorder,Major Depressive Episode hypertension: Yes restless leg syndrome: Yes Surgical History Surgery Date(Month/Year) Previous appendectomy pectus excavatomy
--- OUTSIDE RECORDS SUMMARY | 2024-06-23 14:32 | XMS_ITS ---
Author Organization [facility] As [employer] Address [address] [place] [address] Care Team Providers Care Assembler Garment Form Name Role Phone Khadra Owen DO Primary Care Provider Unavailab Hafsa Martini Unavailable [phone] Allergies No Known Allergies REASON FOR VISIT f/u medications Medications Medication SIG (Take, Route, Frequency, Duration) Notes Start Date End Date Status Trintellix 10 MG 1 tablet Orally Once a day for 90 days Active buPROPion HCl ER (XL) 150 MG 1 tablet in the morning Orally Once a day for 90 days stop 300 mg dose patient is on 150 mg daily Active Dextromethorphan-buP ROPion ER 45-105 MG 1 tablet in the morning Orally twice a day for 30 days d/c Wellbutrin 06/16/2024 Active Xanax 0.5 MG 1 tablet Orally Twice a day Active Montelukast Sodium 10 MG 1 tablet Orally Once a day Active Trintellix 10 MG 1 tablet Orally Once a day for 30 days 04/12/2024 Active Omeprazole 20 MG 1 capsule 1/2 to 1 hour before morning meal Orally Once a day Active Valsartan 160 MG 1 tablet Orally Once a day Active busPIRone HCl 5 MG 1 tablet Orally Twice a day for 90 days Active Tylenol PM Extra Strength 500-25 MG 1 tablet at bedtime as needed Orally Once a day needed for sleep Active Social History Sex Assigned At : Social History Observation Description Sex Assigned At Male Problems Problem Type SNOMED Code ICD Code Onset Dates Problem Status W/U Status Risk Notes Problem Depression Screening (254291009) Encounter for screening for depression (Z13.31) Active confirmed Vital Signs Respiratory Rate 16 /min 06/16/2024 Encounters Encounter Location Date Provider Diagnosis [facility] [address] [place] [address] 06/16/2024 Hafsa Marti MDD (major depressiv e disorder), recurrent episode, moderate F33.1 ; CASTILLO (generalized anxiety disorder) F41.1 ; Primary insomnia F51.01 ; Primary hypertension I10 and Encounter for screening for depression Z13.31 Assessments Encounter Date Diagnosis (ICD Code) Assessment Notes Treatment Notes Treatment Clinical Notes Section Notes 06/16/2024 MDD (major depressive disorder), recurrent episode, [...] http_s://www.beto .org/About-Mental -Illness/Mental-H ealth-Conditions http_s://psychcen tral.com/depressi on/the-cognitive- pdrobksf-nh-jpzkp ssion#treatments http__s://www.nim h.nih.gov/health/ topics/mental-hea lth-medications http__s://www.nam i.org/About-Menta [...] B/P rx http_s://www.beto .org/About-Mental -Illness/Mental-H ealth-Conditions http_s://psychcen [employer].com/depressi on/the-cognitive- yovfebil-bf-nskga ssion#treatments http__s://www.[facility].nih.gov/health/ topics/mental-hea lth-medications http__s://www.nam i.org/About-Menta l-Illness/Treatme nts/Mental-Health -Medications [...] B/P rx http_s://www.beto .org/About-Mental -Illness/Mental-H ealth-Conditions http_s://psychcen Inspire/depressi on/the-cognitive- xlmgiive-ej-zcrsr ssion#treatments http__s://www.[facility].nih.gov/health/ topics/mental-hea lth-medications http__s://www.nam i.org/About-Menta l-Illness/Treatme nts/Mental-Health -Medications [...] B/P rx http_s://www.beto .org/About-Mental -Illness/Mental-H ealth-Conditions http_s://psychcen Inspire/depressi on/the-cognitive- rtexjrlo-vm-tscwk ssion#treatments http__s://www.nim h.nih.gov/health/ topics/mental-hea lth-medications http__s://www.nam i.org/About-Menta [...] http_s://www.beto .org/About-Mental -Illness/Mental-H ealth-Conditions http_s://psychcen tral.com/depressi on/the-cognitive- dwrlryab-ev-zjskr ssion#treatments http__s://www.nim h.nih.gov/health/ topics/mental-hea lth-medications http__s://www.nam i.org/About-Menta [...] interactions with prescribed medications. Plan Of Treatment Medication Medication Name Sig Start Date Stop Date Notes buPROPion HCl ER (XL) 150 MG 1 tablet in the morning Orally Once a day for 90 days Trintellix 10 MG 1 tablet Orally Once a day for 90 days Dextromethorphan-buPROPion ER 45-105 MG 1 tablet in the morning Orally twice a day for 30 days 06/16/2024 d/c Wellbutrin busPIRone HCl 5 MG 1 tablet Orally Twic e a day for 90 days Treatment Notes Assessment Notes MDD (major depressive disord er), recurrent episode, moderate Electronic Prior Authorization was reque sted for Trintellix 10 MG Tablet. Provider can order medication once approval received., Preventing Depression From Coming Back: Care Instructions material was published, Learning About Depression material was published, Learning About Depression Screening material was published, Seasonal Affective Disorder: Care Instructions material was published, Depression Treatment: Care Instructions material was published CASTILLO (generalized anxiety disorder) Learn ing About Generalized Anxiety Disorder material was published, Generalized Anxiety Disorder: Care Instructions material was published, Learning About Anxiety Disorders material was published, Learning About Transcranial Magnetic Stimulation (TMS) material was published Primary insomnia Insomnia: Care Instr uctions material was published, Learning About Sleeping Well material was published Next Appt Details Follow Up: 3 Weeks, Reason: [facility] Provider Name:Hafsa Marti , 2024 01:30:00 PM, [address], [address], [place], [address], Progress Notes * Doug BAUER PDOB: [birth year] (63 yo M)Acc No.[id number]:06/16/2024 Patient: Doug CHEN Provider: GENI CHACON :1960 A ge:63 Y S ex:Male Date:06/16/2024 Phone: Address:[address] [facility] Pcp:Khadra Owen DO Subjective: * Chief Complaints: * 1 . F/u medications. * HPI: F unctional Status: Follow up depression, anxiety chronic since last reported I felt I needed to come in earlier I felt over whelm panic at night sometime improve and I had increase in B/P rx and I fear of dying and I had therapy x2 now and I remember I woke up cold sweat and tingling sensation and stress of life, I used ot go and go and do all kinds things and not able to and worries over health and I lost 15 pounds and working on weight loss, I was on Effexor year ago and wonder if good idea, I was then on Wellbutrin only and then came here, I feel better when came here and now relapse, I sleep 7-8 hours and mond wakes up on high alert and cordero up, and sleep is only peace I have and not tired, I get anxious, restless and can not come down from high anxiety, I can not get comfortable in bed with temp and have pain and injections in back and urinate more and with depression I focus more on pain, I go to activities, and I feel hopeless and helpless and stress at work, and question if I can do my job, and 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 I do not like Lexapro. I can not sleep on it, denies SI/HI no plan or intent no thoughts harm to self or others, no self cutting or self harm, no past attempts, weapons in home in safe, reported removed all guns 06/16/24 no past hospital hx, FH none ETOH- former- stopped 3 months ago smoking denies chews- nicotric 2 mg and plan to stop cigar occasional with golfing labs- PCP recently drugs- denies I felt had kota/hypomania state in my 30's, I thought one time I could fly and inflation, excite energy and go and go, and age [age] years old I had had severe depression and inclusive rx hx Xanax, Lexapro (insomnia), Wellbutrin, Effexor (sexual s/e), Zoloft, Viibyrd, Paxil (GI issues), 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 D epression screening: Intervention D epression Screening Findings P ositve F ollow-Up for Depression M ental health treatment assessment, Patient follow-up to return when and if necessary S uicide Risk Assessment Performed 0 06/16/2024 no plans or intent A dditional Evaluation for Depression P sychiatric interview and evaluation N delia of the standardized tool used for adult depression screening: [facility] (PHQ-9) * ROS: P sychiatric: Delusions d enies. r eports n o shortness of no chest pain, no palpitations, no known heart murmur, and no ankle swelling; no cough. r eports no abdominal pain, no nausea, no vomiting, no constipation, normal appetite, no diarrhea, and no GERD; . r eports occasional headaches and no migraines but reports no loss of consciousness, no weakness, no numbness, no seizures, no dizziness, no tremor, no gait dysfunction, and no paralysis. r eports no sleep disturbances and no restless sleep, and no memory loss b ut reports depression, feeling safe in a relationship, no alcohol abuse, reported anxiety, no hallucinations, no suicidal thoughts, no mood swings, no agitation, r eports f atigue. reports no fever, no significant weight gain, and reported weight loss.- intentional r eports wears glasses reports no incontinence, no difficulty urinating,, and no increased frequency. r eports muscle aches, no muscle weakness, no arthralgias/joint pain, reported rt shoulder and neck pain no back pain, no swelling in the extremities, reported neck pain, and no difficulty walking. * Medical History: P ast Psychiatric History: Anxiety Disorder,Panic Disorder,Major Depressive Episode, hypertension: Yes, restless leg syndrome: Yes. * Medications: T aking Tylenol PM Extra Strength 500-25 MG Tablet 1 tablet at bedtime as needed Orally Once a day , Notes to Pharmacist: needed for sleep, Taking Xanax 0.5 MG Tablet 1 tablet Orally Twice a day , Taking Montelukast Sodium 10 MG Tablet 1 tablet Orally Once a day , Taking Omeprazole 20 MG Capsule Delayed Release 1 capsule 1/2 to 1 hour before morning meal Orally Once a day , Taking Valsartan 160 MG Tablet 1 tablet Orally Once a day , Taking Trintellix 10 MG Tablet 1 tablet Orally Once a day , Taking busPIRone HCl 5 MG Tablet 1 tablet Orally Twice a day , Taking buPROPion HCl ER (XL) 150 MG Tablet Extended Release 24 Hour 1 tablet in the morning Orally Once a day stop 300 mg dose, Notes to Pharmacist: patient is on 150 mg daily, Discontinued Trintellix 10 MG Tablet 1 tablet Orally Once a day , Medication List reviewed and reconciled with the patient * Allergies: N .K.D.A. Objective: * Vitals: R R:16/min. * Examination: P sychiatry: Appearance: w ell-groomed, well-nourished, appears stated age, slender build. Abnormal body movements: n one. Affect / mood: f lat, apathetic, depressed, sad. Aggression: l ow. Anger control: g ood. Attention: g ood. Attitude: c ooperative. Gait s teady. Homicidal ideation: n one. Suicidal ideation: n one. Memory status: n o impairment noted. Degree of awareness of surroundings: w ithin normal limits.? Delusions: n o. Hallucinations: n o. Impulse control: g ood. Insight: g ood. Intellectual functioning: a verage. Comprehension - Intellectual function: a verage. Judgement: g ood. Orientation: a wake, alert and oriented x 3. Perceptual disorders: n o perceptual disorder noted. Psychomotor activity: w ithin normal range. Speech / language: a ppropriate pitch/modulation, clear and coherent, normal rate, volume, and articulation (RVR), proper grammar used. Thought content: a ppropriate. Thought process: i ntact. Assessment: * Assessment: 1. M DD (major depressive disorder), recurrent episode, moderate - F33.1 (Primary) ?2. G AD (generalized anxiety disorder) - F41.1 3 . P rimary insomnia - F51.01 4 . P rimary hypertension - I10 5 . E ncounter for screening for depression - Z13.31 1. Depression discuss and eduation on medication [...] continue will see PCP on B/P rx http_s://www.beto.org/Ofeiq-Kwbpgu-Dbymhmz/Lpvyqo-Mnenpp-Hryendqyrg http_s://psychcentral.com/depression/ykr-qqsorguzg-efzrudgm-of-depression#treatm ents http__s://www.nimh.nih.gov/health/topics/tbdlew-ibkfqt-pnitybhqiaq http__s://www.beto.org/Mzspw-Xlvsoz-Itwzckb/Treatments/Zjbnrq-Jpcmjt-Haooilelujx educated on all medications, benefits, side effects [...] effects including loss of libido, increased suicidal thoughts/behaviors in children and young adults, and serotonin syndrome. Medication Management and Follow-Up - Plan: - Schedule follow-up appointments every 1-3 months to monitor the patient's response to the medication regimen. - Reinforce the importance of avoiding recreational drug use due to potential neurotoxicity and interactions with prescribed medications. Plan: * Treatment: 2. G AD (generalized anxiety disorder) Refill busPIRone HCl Tablet, 5 MG, 1 tablet, Orally, Twice a day, 90 days, 180 Tablet, Refills 0.? Notes: Learning About Generalized Anxiety Disorder material was published, Generalized Anxiety Disorder: Care Instructions material was published, Learning About Anxiety Disorders material was published, Learning About Transcranial Magnetic Stimulation (TMS) material was published 3. P rimary insomnia Notes: Insomnia: Care Instructions material was published, Learning About Sleeping Well material was published * Procedure Codes: 9 6127 BEHAV ASSMT W/SCORE & DOCD/STAND INSTRUMENT, G2211 VISIT COMPLEXITY INHERENT TO ONGOING CARE RELATED TO A PATIENT'S SINGLE, SERIOUS CONDITION OR A COMPLEX CONDITION, G8431 CLIN DEPRESSION SCREEN DOC * Follow Up: 3 Weeks (Reason: medication follow up [facility]) * Billing Information: * Visit Code: 39523 OFFICE OUTPATIENT VISIT 25 MINUTES DETAILED HISTORY AND EXAM/MODERATE MEDICAL DECISION MAKING. * Procedure Codes: 55975 BEHAV ASSMT W/SCORE & DOCD/STAND INSTRUMENT. G2211 VISIT COMPLEXITY INHERENT TO ONGOING CARE RELATED TO A PATIENT'S SINGLE, SERIOUS CONDITION OR A COMPLEX CONDITION. G8431 CLIN DEPRESSION SCREEN DOC. * Sign off status: Completed true * Provider: GENI CHACON Date: 06/16/2024 Generated for Roberto douglass/Tamara/Helena on: 06/23/2024 02:32 PM CDT History and Physical Notes * HPI (History of Present Illness) Category Sub-Category Detail Notes Category Not es Depression screening Intervention Depression Screening Findings: Positve Follow-Up for Depression: [facility] health treatment assessment, Patient follow-up to return when and if necessary Suicide Risk Assessment Performed: 06/16 no plans or intent Additional Evaluation for De pression: Psychiatric interview and evaluation Name of the standardized too l used for adult depression screening:: Patient Health Questionnaire (PHQ-9) Functional Status Follow up depression, anxiety chronic since last reported I felt I needed to come in earlier I felt over whelm panic at night sometime improve and I had increase in B/P rx and I fear of dying and I had therapy x2 now and I remember I woke up cold sweat and tingling sensation and stress of life, I used ot go and go and do all kinds things and not able to and worries over health and I lost 15 pounds and working on weight loss, I was on Effexor year ago and wonder if good idea, I was then on Wellbutrin only and then came here, I feel better when came here and now relapse, I sleep 7-8 hours and mond wakes up on high alert and cordero up, and sleep is only peace I have and not tired, I get anxious, restless and can not come down from high anxiety, I can not get comfortable in bed with temp and have pain and injections in back and urinate more and with depression I focus more on pain, I go to activities, and I feel hopeless and helpless and stress at work, and question if I can do my job, and 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 I do not like Lexapro. I can not sleep on it, denies SI/HI no plan or intent no thoughts harm to self or others, no self cutting or self harm, no past attempts, weapons in home in safe, reported removed all guns 06/16/24 no past hospital hx, FH none ETOH- former- stopped 3 months ago smoking denies chews- nicotric 2 mg and plan to stop cigar occasional with golfing labs- PCP recently drugs- denies I felt had kota/hypomania state in my 30's, I thought one time I could fly and inflation, excite energy and go and go, and age [age] years old I had had severe depression and inclusive rx hx Xanax, Lexapro (insomnia), Wellbutrin, Effexor (sexual s/e), Zoloft, Viibyrd, Paxil (GI issues), 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 Examination Category Sub-Category Detail Notes Category Not es Psychiatry Appearance: well-groomed, we ll-nourished, appears stated age, slender build Attitude: cooperative Psychomotor activity: within normal rang e Abnormal body movements: none Attention: good Degree of awareness of surroundings: wit hin normal limits Orientation: awake, alert and deepthi ented x 3 Affect / mood: flat, apathetic, dep ressed, sad Speech / language: appropriate pitch/mo dulation, clear and coherent, normal rate, volume, and articulation (RVR), proper grammar used Insight: good Judgement: good Thought process: intact Thought content: appropriate Perceptual disorders: no perceptual diso rder noted Aggression: low Anger control: good Suicidal ideation: none Homicidal ideation: none Intellectual functioning: average Impulse control: good Memory status: no impairment noted Delusions: no Hallucinations: no Comprehension - Intellectual function: a verage Gait steady
== END 2024-06-23 14:29 | disposition home or self-care (01) ==
PROVIDERS: PCP Family Medicine; Visit Provider Physical Medicine & Rehabilitation Pain Medicine
DX: M47.22 Other spondylosis with radiculopathy, cervical region (principal)
CPT/HCPCS: 72141

== ENCOUNTER 2024-11-17 08:00 | Outpatient (RCR) | payer BC, SELFPAY ==
--- NOTE | 2024-09-28 16:58 | OPREHPOC ---
Outpatient Therapy Plan of Care This is a Multidisciplinary Plan of Care that may contain components documented by all disciplines (PT, OT, and ST.) PT Problem 1 PT Problem #1 Knowledge Deficit PT Goal 1 Goal / Goal Update Independent with HEP Target Visit 4 PT Goal 2 Goal / Goal Update Report no cervical pain greater than 2/10 Target Visit 8 PT Problem 2 PT Problem #2 Impaired Range of Motion PT Goal 1 Goal / Goal Update 1. Demonstrate 60 degrees of cervical mobility bilaterally 2. Demonstrate non painful flexion and extension Target Visit 8 PT Problem 3 PT Problem #3 Impaired Strength PT Goal 1 Goal / Goal Update 1. Improve felix periscapular strength to 4+/5 to improve postural stability with ADLs Target Visit 8
--- NOTE | 2024-09-28 16:58 | PTOPEVAL1 ---
Assessment and note entered by Emery García, PT Evaluation Information Assessment Status Evaluation ICD-10 Condition Codes (PT) Cervicalgia M54.2 Subjective Information Reports that he has had bilaterally radiculopathy on the arms but has been more pronounced in the left arm. He is right handed. Reports that he has focal pain as well between the shoulder blades with some locking at times. He has improved wit sleeping while using Tylenol. 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 Reported Pain Level Pain Score 3: Self Report Assessment PT Clinical Summary Patient presents with forward head posture with noted herniated cervical discs at C5-C6 and C6-C7. Patient having bilateral radicular issues present in ulnar nerve distribution. Periscapular weakness noted. He will benefit form skilled therapy to address noted deficits to improve postural strength and cervical mobility for pain reduction. Plan of Care Interventions Manual Therapy,Neuro Re-education,Therapeutic Activities,Therapeutic Exercise PT Services Indicated Yes Treatment Frequency and 2x/week for 8 visits Duration These treatments will address the objective and functional deficits as defined above. The patient will be advanced safely and appropriately in order for the patient to progress towards his/her prior level of function. Additional exercises will be introduced and as well as a comprehensive home exercise program upon discharge, if needed, ?to ensure carryover of functional gains achieved in the clinic. This treatment plan has been reviewed and agreement upon by the patient.
--- NOTE | 2024-11-17 08:50 | OPREHPOC ---
Outpatient Therapy Plan of Care This is a Multidisciplinary Plan of Care that may contain components documented by all disciplines (PT, OT, and ST.) PT Problem 1 PT Problem #1 Knowledge Deficit PT Goal 1 Goal / Goal Update Independent with HEP 11-17-24 d/c goal met Target Visit 4 Progress Met PT Goal 2 Goal / Goal Update Report no cervical pain greater than 2/10 11-17-24 d/c goal not met, improved to 3/10 at worst Target Visit 8 Progress Not Met PT Problem 2 PT Problem #2 Impaired Range of Motion PT Goal 1 Goal / Goal Update 1. Demonstrate 60 degrees of cervical mobility bilaterally 2. Demonstrate non painful flexion and extension 11-17-24 d/c goals met Target Visit 8 Progress Met PT Problem 3 PT Problem #3 Impaired Strength PT Goal 1 Goal / Goal Update 1. Improve felix periscapular strength to 4+/5 to improve postural stability with ADLs 11-17-24 d/c goal met Target Visit 8 Progress Met
--- NOTE | 2024-11-17 08:50 | PTOPDC ---
Assessment and note entered by Qing Coy, PT Assessment Status Discharge ICD-10 Condition Codes (PT) Cervicalgia M54.2 Subjective Information since coming for therapy, hand pain is less; still have numbness in R fingers and L not that bad; watching my posture; doing the exercises at home; going to a [facility] class at [employer] once/week like [employer]; Reported Pain Level Pain Score 1: Self Report Additional Pain Score Comments pain range in the past week 1-3/10; into R, 3-4-5 fingers intermittent and L intermittent to elbow increase pain: mowing, weed eater, more physical activity decrease pain: rest, tylenol, heat, hot tub with sleeping- able to sleep through the night without awakening. Assessment PT Clinical Summary Juan Carlos has received 8 PT sessions. He has improved in all areas: today presents with pain rating of 1-3/10, with intermittent radicular pain into R UE: 3,4,5 fingers and L UE to elbow; self assessment with Neck Index rating of 4% limitation in activity level; increase cervical rotation to R and L and pain free cervical and bilateral shoulder ROM; good strength of both shoulders and scapular musculature. Education completed for HEP, posture , body mechanics and pain management. The goals were achieved. Discharge PT. He is to continue with HEP and posture awareness. Plan of Care PT Services Indicated No
== END 2024-11-17 14:02 | disposition home or self-care (01) ==
LOC: ANHPT 08:00
PROVIDERS: PCP Family Medicine
DX: M54.2 Cervicalgia (principal)
CPT/HCPCS: 97110; 97140; 97161; 97530